=== PATIENT | male | born 1980 | race American Indian/Alaskan Native ===

== ENCOUNTER 2017-02-07 23:50 | Emergency (ER) | payer MEDICAID ==
[2017-02-08 00:22] VITALS: BP 124/103
[2017-02-08 01:09] LABS: Basophils % (Auto) 0.7 % (0.0-1.8); Eosinophils % (Auto) 0.6 % (0.0-4.3); Hematocrit 44.7 % (35.5-45.6); Hemoglobin 14.5 gm/dl (11.8-15.2); Mean Corpuscular HGB Conc 33 % (32-34); Mean Corpuscular Hemoglobin 33 pg (28-32); Mean Corpuscular Volume 101 fl (84-94); Platelet Count 279 K/mm3 (140-440); Red Blood Count 4.42 M/mm3 (3.65-5.03); Red Cell Distribution Width 12.9 % (13.2-15.2); White Blood Count 8.7 K/mm3 (4.5-11.0)
[2017-02-08 01:14] LABS: Anion Gap 23 mmol/L; BUN/Creatinine Ratio 8.75; Blood Urea Nitrogen 7 mg/dL (9-20); Calcium 9.1 mg/dL (8.4-10.2); Carbon Dioxide 21 mmol/L (22-30); Chloride 106.9 mmol/L (98-107); Glucose 82 mg/dL (75-100); Potassium 4.4 mmol/L (3.6-5.0); Sodium 146 mmol/L (137-145)
[2017-02-08 02:24] LABS: Urine Drugs of Abuse Note Disclamer
[2017-02-08 02:33] LABS: Bilirubin,Urine NEG (Negative); Blood,Urine NEG (Negative); Ketones,Urine NEG (Negative); Leukocyte Esterase,Urine NEG (Negative); Nitrite,Urine NEG (Negative); Protein,Urine <15 mg/dL mg/dL (Negative); RBC,Urine < 1.0 /HPF (0.0-6.0); Urobilinogen,Urine < 2.0 mg/dL (<2.0); WBC,Urine < 1.0 /HPF (0.0-6.0)
== END 2017-02-08 01:00 | disposition left against medical advice (07) ==
LOC: ED 23:50
DX: R10.9 Unspecified abdominal pain (principal); Z53.21 Procedure and treatment not carried out due to patient leaving prior to being seen by health care provider
CPT/HCPCS: 36415; 80048; 80307; 81001; 84484; 85025; 93005; 93010; G0480; 80320

== ENCOUNTER 2019-06-11 12:24 | Emergency (ER) | payer MEDICAID ==
--- NOTE | 2019-06-11 13:32 | Event Note ---
ED Screening Note Date of service: 06/11/19 Time: 13:30 ED Screening Note: 38 y o mal presents s/p fall down 6 stairs today while coming down cc of lft ankle pain tender t palpation cant ambulate on foot This initial assessment/diagnostic orders/clinical plan/treatment(s) is/are subject to change based on patients health status, clinical progression and re- assessment by fellow clinical providers in the ED. Further treatment and workup at subsequent clinical providers discretion. Patient/guardian urged not to elope from the ED as their condition may be serious if not clinically assessed and managed. Initial orders include: ankle xray acc eval
--- NOTE | 2019-06-11 14:24 | XRay Report ---
Left ankle 3 views INDICATION: Left ankle pain following fall IMPRESSION: No displaced fracture or subluxation of the ankle is identified. There is mild to moderat e degenerative changes involving the midfoot. Signer Name: Dick Nance MD Signed: 06/11/2019 2:19 PM Workstation Name: [id number]
[2019-06-11] MEDS ORDERED: CYCLOBENZAPRINE 10 MG TAB PO ONE (19:56)
[2019-06-11] MEDS ORDERED: ACETAMINOPHEN 500 MG TAB PO ONE (19:56)
[2019-06-11] MEDS ORDERED: IBUPROFEN 600 MG TAB PO ONE (19:56)
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
[2019-06-11 21:00] VITALS: BP 160/99
== END 2019-06-11 21:00 | disposition home or self-care (01) ==
LOC: ED 12:24
DX: S93.402A Sprain of unspecified ligament of left ankle, initial encounter (principal); S93.602A Unspecified sprain of left foot, initial encounter; I25.2 Old myocardial infarction; F17.200 Nicotine dependence, unspecified, uncomplicated; Z98.890 Other specified postprocedural states; Z79.1 Long term (current) use of non-steroidal anti-inflammatories (NSAID); Z79.899 Other long term (current) drug therapy; W10.9XXA Fall (on) (from) unspecified stairs and steps, initial encounter; Y93.89 Activity, other specified; Y92.89 Other specified places as the place of occurrence of the external cause; Y99.8 Other external cause status